=== PATIENT | female | born 1960 | race Caucasian/White ===

== ENCOUNTER → 2020-07-12 | Outpatient (CLI) | payer OTHER ==
[~2020-07-12] MED LIST: ASPI81TA45 PO; Biotin PO; Fish oil PO; MULT-717 PO; Magnesium PO; SLEEP AID PO; VIT1TABL32 PO; gabapentin PO; levothyroxine PO; vitamin D PO
[2020-07-12 16:45] LABS: BASOPHILS % (AUTO) 1 % (0-1); EOSINOPHILS % (AUTO) 2 % (1-7); LYMPHOCYTES % (AUTO) 28 % (22-44); MEAN CORPUSCULAR HEMOGLOBIN 29.9 pg (27.0-34.8); MEAN CORPUSCULAR HGB CONC 34.2 g/dL (32.4-35.8); MEAN PLATELET VOLUME 10.3 fL (7.4-10.4); MONOCYTES % (AUTO) 7 % (2-9); NEUTROPHILS % (AUTO) 62 % (42-75); PLATELET COUNT 161 x10^3/uL (130-400); RED BLOOD COUNT 4.95 x10^6/uL (3.82-5.3); RED CELL DISTRIBUTION WIDTH 13.1 % (9.6-15.2)
[2020-07-12 16:52] LABS: MD NO
[2020-07-12 16:54] LABS: ANION GAP 3 mmol/L (5-15); CALCIUM 9.4 mg/dL (8.5-10.1); CHLORIDE 106 mmol/L (98-107); CREATININE 0.96 mg/dL (0.55-1.02)
[2020-07-12 16:56] LABS: INTERNATIONAL NORMALIZED RATIO 1.03 (0.93-1.1)
== END | disposition home or self-care (01) ==
LOC: STAR 15:56
PROVIDERS: ATTEND Neurological Surgery
DX: Z01.812 Encounter for preprocedural laboratory examination (principal); Z20.822 Contact with and (suspected) exposure to COVID-19; M48.062 Spinal stenosis, lumbar region with neurogenic claudication
CPT/HCPCS: 36415; 71046; 80048; 85025; 85610; 85730; 93005; U0003

== ENCOUNTER 2020-07-17 06:57 | Inpatient (IN) | payer OTHER ==
[~2020-07-17] VITALS: Ht 162.6 cm; Wt 69.0 kg
[2020-07-17] MEDS ORDERED: BACITRACIN 50,000 UNIT ONE (07:02)
[2020-07-17] MEDS ORDERED: BUPIVACAINE/PF 0.5% ONE (07:02)
[2020-07-17] MEDS ORDERED: EPINEPHRINE 1 MG/ML, 1ML ONE (07:02)
[2020-07-17] MEDS ORDERED: CHLORHEXIDINE 15 ML UDC ONE (07:24)
[2020-07-17] MEDS ORDERED: CHLORHEXIDINE 15 ML UDC PO ONE (07:30)
[2020-07-17 07:39] VITALS: BP 138/91
[2020-07-17] MEDS ORDERED: FENTANYL PF 250 MCG/5ML ONE (08:45)
[2020-07-17] MEDS ORDERED: MIDAZOLAM 1 MG/ML, 2ML ONE (08:45)
[2020-07-17] MEDS ORDERED: ROCURONIUM 10 MG/ML,10ML ONE (09:16)
[2020-07-17] MEDS ORDERED: CEFAZOLIN 1,000 MG ONE (09:16)
[2020-07-17] MEDS ORDERED: DEXAMETHASONE 4 MG/ML, 1ML ONE (09:16)
[2020-07-17] MEDS ORDERED: PROPOFOL 10 MG/ML, 20ML ONE (09:16)
[2020-07-17] MEDS ORDERED: SUCCINYLCHOLINE 20 MG/ML, 10ML ONE (09:16)
[2020-07-17] MEDS ORDERED: ONDANSETRON 2MG/ML, 2ML ONE (09:16)
[2020-07-17] MEDS ORDERED: PROPOFOL 50 ML ONE (09:57)
[2020-07-17] MEDS ORDERED: MEPERIDINE/PF 25MG/0.5ML IVPush PRN (10:30)
[2020-07-17] MEDS ORDERED: ONDANSETRON 2MG/ML, 2ML IVPush PRN ×2 (10:30→16:00)
[2020-07-17] MEDS ORDERED: PROMETHAZINE 25 MG/ML, 1ML IVPush PRN (10:30)
[2020-07-17] MEDS ORDERED: LABETALOL 5MG/ML, 20ML IV PRN (10:30)
[2020-07-17] MEDS ORDERED: hydrALAzine 20 MG/ML, 1ML IV PRN (10:30)
[2020-07-17] MEDS ORDERED: ACETAMINOPHEN 325 MG TABLET PO PRN (10:30)
[2020-07-17] MEDS ORDERED: EPHEDRINE 50 MG/ML, 1ML IVPush PRN (10:30)
[2020-07-17] MEDS ORDERED: LORazepam 2 MG/ML, 1ML IVPush PRN (10:30)
[2020-07-17] MEDS ORDERED: METHOCARBAMOL 1,000 MG in DEXTROSE 5% 100 ML IV ONE (11:13)
[2020-07-17] MEDS ORDERED: FENTANYL PF 100 MCG/2ML ONE (11:16)
[2020-07-17] MEDS: FENTANYL PF 100 MCG/2ML IV PRN ×2 (11:18→11:31)
[2020-07-17] MEDS ORDERED: ACETAMINOPHEN 650 MG/20.3 ML UDC ONE (11:45)
[2020-07-17] MEDS ORDERED: OXYcodone 5 MG/5 ML ORAL.SOL UDC ONE (11:45)
[2020-07-17] MEDS: OXYcodone 5 MG/5 ML ORAL.SOL UDC PO PRN ×2 (11:50→15:50)
[2020-07-17] MEDS ORDERED: HYDROmorphone 1 MG/ML, 1ML INJ ONE ×3 (12:00→19:22)
[2020-07-17] MEDS: HYDROmorphone 1 MG/ML, 1ML INJ IVPush PRN ×3 (12:05→12:28)
[2020-07-17] MEDS ORDERED: LORazepam 2 MG/ML, 1ML ONE (12:47)
[2020-07-17] MEDS ORDERED: DIPHENHYDRAMINE 50 MG/ML, 1ML ONE (13:09)
[2020-07-17] MEDS ORDERED: DIPHENHYDRAMINE 50 MG/ML, 1ML IVPush PRN ×3 (13:30→18:30)
[2020-07-17] MEDS ORDERED: DIPHENHYDRAMINE 50 MG/ML, 1ML IM PRN ×2 (16:00→18:30)
[2020-07-17] MEDS ORDERED: SENNA/DOCUSATE TABLET PO PRN (16:00)
[2020-07-17] MEDS ORDERED: PHARMACY MAY ADJ FOR RENAL FX MC PRN (16:00)
[2020-07-17] MEDS ORDERED: PROMETHAZINE 25 MG/ML, 1ML IM PRN ×2 (16:00→18:30)
[2020-07-17] MEDS ORDERED: DIPHENHYDRAMINE 50 MG CAPSULE PO PRN (16:00)
[2020-07-17] MEDS ORDERED: CEFAZOLIN PMX 1GM/50ML 50 ML ONE (16:17)
[2020-07-17] MEDS: CEFAZOLIN PMX 1GM/50ML 50 ML IVPB SCH ×2 (16:30→23:58)
[2020-07-17 17:32] VITALS: BP 105/47
[2020-07-17] MEDS ORDERED: NS + 20MEQ KCL 1,000 ML IV SCH ×2 (17:47→18:30)
[2020-07-17] MEDS ORDERED: DIPHENHYDRAMINE 25 MG CAPSULE PO PRN (18:00)
[2020-07-17] MEDS ORDERED: HYDROmorphone 2 MG/ML, 1ML IM PRN (18:00)
[2020-07-17 18:23] VITALS: BP 118/73
[2020-07-17] MEDS: HYDROmorphone/PF 4 MG/ML, 1ML IM PRN ×4 (18:30→20:01)
[2020-07-17] MEDS ORDERED: METHOCARBAMOL 750 MG TABLET PO PRN (18:30)
[2020-07-17] MEDS ORDERED: ONDANSETRON 2MG/ML, 2ML IV PRN (18:30)
[2020-07-17] MEDS ORDERED: CEFAZOLIN PMX 1GM/50ML 50 ML IVPB SCH (18:30)
[2020-07-17] MEDS: OXYcodone IR 5MG TABLET PO PRN ×2 (18:36→22:03)
[2020-07-17] MEDS: METHOCARBAMOL 750 MG TABLET PO SCH (18:55)
[2020-07-17] MEDS ORDERED: HYDROmorphone 2 MG/ML, 1ML ONE (19:57)
[2020-07-18] MEDS ORDERED: NS + 20MEQ KCL 1,000 ML IV SCH
[2020-07-18] MEDS: OXYcodone IR 5MG TABLET PO PRN ×3 (00:23→08:43)
[2020-07-18 00:24] VITALS: BP 116/78
[2020-07-18] MEDS: METHOCARBAMOL 750 MG TABLET PO SCH ×2 (02:36→09:40)
[2020-07-18 03:51] VITALS: BP 96/63
[2020-07-18] MEDS ORDERED: LEVOTHYROXINE 50 MCG TABLET PO SCH (06:00)
[2020-07-18 07:15] VITALS: BP 121/74
[2020-07-18] MEDS ORDERED: SENNA/DOCUSATE TABLET PO SCH (09:00)
[2020-07-18] MEDS ORDERED: MULTIVITAMIN 1 TABLET PO SCH (09:00)
[2020-07-18] MEDS ORDERED: GABAPENTIN 300 MG CAPSULE PO SCH (21:00)
[2020-07-20] MEDS ORDERED: METHOCARBAMOL 750 MG TABLET PO SCH
== END 2020-07-18 09:55 | disposition home or self-care (01) | DRG 520 ==
LOC: OUT 06:57 → ORIP 15:59 → 4NE 17:15 → DCLOUNGE 07-18 09:50
PROVIDERS: ADMIT Neurological Surgery; ATTEND Neurological Surgery
PROC: 01NB0ZZ Release Lumbar Nerve, Open Approach (ICD-10-PCS; 2020-07-17)
PROC: 0SB20ZZ Excision of Lumbar Vertebral Disc, Open Approach (ICD-10-PCS; 2020-07-17)
PROC: 00NY0ZZ Release Lumbar Spinal Cord, Open Approach (ICD-10-PCS; principal; 2020-07-17 09:30)
DX: M48.061 Spinal stenosis, lumbar region without neurogenic claudication (principal); Z20.822 Contact with and (suspected) exposure to COVID-19; M54.16 Radiculopathy, lumbar region; Z88.5 Allergy status to narcotic agent
CPT/HCPCS: 72100; S0020; G0378; J0171; J0690; J1100; J1170; J2250; J2405; J2704; J3010; J3480; J0330; J1200; J2060; J2800